=== PATIENT | female | born 1990 | race Caucasian/White ===

== ENCOUNTER 2018-02-20 06:47 | Emergency (ER) | payer BC, OTHER, SELFPAY ==
[2018-02-20] MEDS ORDERED: Acetaminophen 500 MG TAB ONE (07:17)
[2018-02-20] MEDS ORDERED: Azithromycin 250 MG TAB ONE (07:54)
== END 2018-02-20 08:00 | disposition home or self-care (01) ==
LOC: BURERS 06:47
DX: J03.90 Acute tonsillitis, unspecified (principal); F17.210 Nicotine dependence, cigarettes, uncomplicated
CPT/HCPCS: 87081; 87430; 87804; 99283

== ENCOUNTER 2018-07-18 16:20 | Emergency (ER) | payer BC, MEDICAID ==
[2018-07-18] MEDS ORDERED: AMOXicillin 250 MG CAP ONE (16:43)
== END 2018-07-18 16:52 | disposition home or self-care (01) ==
LOC: BURERS 16:20
DX: O99.511 Diseases of the respiratory system complicating pregnancy, first trimester (principal); J06.9 Acute upper respiratory infection, unspecified; O99.89 Other specified diseases and conditions complicating pregnancy, childbirth and the puerperium; H66.92 Otitis media, unspecified, left ear; Z87.891 Personal history of nicotine dependence; Z3A.00 Weeks of gestation of pregnancy not specified
CPT/HCPCS: 99283

== ENCOUNTER 2019-04-04 22:45 | Emergency (ER) | payer OTHER ==
[2019-04-04] MEDS ORDERED: Dexamethasone 4 MG TAB ONE (23:04)
[2019-04-04] MEDS ORDERED: hydrOXYzine 25 MG TAB ONE (23:04)
== END 2019-04-04 23:07 | disposition home or self-care (01) ==
LOC: BURERS 22:45
DX: T63.481A Toxic effect of venom of other arthropod, accidental (unintentional), initial encounter (principal); F17.210 Nicotine dependence, cigarettes, uncomplicated
CPT/HCPCS: 99282; J8540

== ENCOUNTER 2019-05-05 16:44 | Emergency (ER) | payer MEDICAID, OTHER, SELFPAY | END 2019-05-05 17:09 | disposition home or self-care (01) | LOC: BURERS 16:44 | DX: L25.9 Unspecified contact dermatitis, unspecified cause (principal); F17.210 Nicotine dependence, cigarettes, uncomplicated | CPT/HCPCS: 99282 ==

== ENCOUNTER 2020-09-29 20:44 | Emergency (ER) | payer SELFPAY ==
[2020-09-29] MEDS ORDERED: Lidocaine 2% w/Epinephrine 1:200K 20 ML VIAL ONE (21:03)
[2020-09-29] MEDS ORDERED: Lidocaine 1% PF 5 ML VIAL ONE (21:05)
[2020-09-29] MEDS ORDERED: TETANUS, DIPHTHERIA TOX,ADULT (TDVAX) 0.5 ML VIAL IM ONE (21:50)
[2020-09-29] MEDS ORDERED: Bacitracin 1 PK ONE (21:54)
== END 2020-09-29 21:58 | disposition home or self-care (01) ==
LOC: BURERS 20:44
DX: S61.012A Laceration without foreign body of left thumb without damage to nail, initial encounter (principal); F17.210 Nicotine dependence, cigarettes, uncomplicated; W26.0XXA Contact with knife, initial encounter
CPT/HCPCS: 12001; 90471; 90714

== ENCOUNTER 2021-03-23 10:37 | Emergency (ER) | payer SELFPAY ==
[2021-03-24 00:35] LABS: SARS-CoV-2 PCR by NAA DETECTED (NotDetected)
== END 2021-03-23 11:50 | disposition home or self-care (01) ==
LOC: BURERS 10:37
DX: U07.1 COVID-19 (principal); F17.210 Nicotine dependence, cigarettes, uncomplicated
CPT/HCPCS: 87081; 87430; 99284; U0003; U0005

== ENCOUNTER 2021-08-30 17:42 | Emergency (ER) | payer SELFPAY ==
[2021-08-30 18:30] LABS: Bilirubin Negative (Negative); Blood, Urine Large (Negative); Clarity Clear (Clear); Glucose, Urine (Dipstick) Negative (Negative); Ketone, Urine Negative (Negative); Leukocyte Small (Negative); Nitrite Negative (Negative); Protein, Urine (Dipstick) 30 mg/dL (Neg-Trace); Urobilinogen 0.2 mg/dL (Less than 2)
[2021-08-30 18:31] LABS: Specific Gravity, Urine 1.006 (1.002-1.036)
[2021-08-30] MEDS ORDERED: Famotidine In NaCl 20 mg/50 ml Premix Bag ONE (18:34)
[2021-08-30] MEDS ORDERED: Ondansetron PF 4 MG/2 ML Vial ONE (18:34)
[2021-08-30] MEDS ORDERED: Glycopyrrolate 0.4 MG/ 2 ML VIAL ONE (18:34)
[2021-08-30 18:48] LABS: #Basophils 0.1 thou/uL (0.0-0.2); #Eosinphils 0.1 thou/uL (0.0-0.7); #Lymphocytes 2.1 thou/uL (1.20-3.40); #Monocytes 0.6 thou/uL (0.11-0.59); #Neutrophils 4.9 thou/uL (1.40-6.50); %Basophils 0.8 % (0.0-1.0); %Eosinophils 1.1 % (0.0-10.0); %Lymphocytes 27.3 % (21.0-51.0); %Monocytes 7.4 % (0.0-10.0); %Neutrophils 63.4 % (42.0-75.0); Mean Corpuscular HGB CONC 34.6 g/dL (32.0-36.0); Mean Corpuscular Hemoglobin 32.5 pg (27.0-31.0); Mean Platelet Volume 8.4 fL (7.4-10.4); Platelet Count 241 thou/uL (130-400); RBC Distribution Width 12.8 % (11.5-14.5); Red Blood Cell (RBC) Count 4.62 mill/uL (4.20-5.40); White Blood Cell (WBC) Count 7.8 thou/uL (4.8-10.8)
[2021-08-30 18:54] LABS: Bacteria/HPF Rare-Few HPF (None Seen); RBC/HPF 21-50 HPF (0-3); Squamous Epithelial 0-3 HPF (0-3); Transitional Epithelial 0-3 HPF (None Seen); WBC/HPF 0-3 HPF (0-3)
[2021-08-30 19:03] LABS: ALT (SGPT) 30 U/L (8-55); AST (SGOT) 23 U/L (5-34); Albumin 4.5 g/dL (3.5-5.0); Alkaline Phosphatase 71 U/L (40-110); Anion Gap 13 mmol/L (10-20); BUN (Urea Nitrogen) 9 mg/dL (7.0-18.7); Bilirubin, Total 0.8 mg/dL (0.2-1.2); Calc. Creatinine Clearance 0 mL/min (70-130); Calcium 8.9 mg/dL (7.8-10.44); Carbon Dioxide 24 mmol/L (22-29); Chloride 108 mmol/L (98-107); Glucose 87 mg/dL (70-105); Lipase 18 U/L (8-78); Potassium 3.8 mmol/L (3.5-5.1); Protein, Total 7.5 g/dL (6.0-8.3); Sodium 141 mmol/L (136-145)
[2021-08-30] MEDS ORDERED: Ciprofloxacin 500 MG TAB ONE (19:45)
== END 2021-08-30 19:49 | disposition home or self-care (01) ==
LOC: BURERS 17:42
DX: R19.7 Diarrhea, unspecified (principal); F17.210 Nicotine dependence, cigarettes, uncomplicated
CPT/HCPCS: 80053; 81003; 81015; 83690; 85025; 96365; 96375; J2405

== ENCOUNTER 2021-09-25 13:28 | Emergency (ER) | payer SELFPAY ==
[2021-09-25] MEDS ORDERED: Acetaminophen 500 MG TAB ONE (14:14)
== END 2021-09-25 14:17 | disposition home or self-care (01) ==
LOC: BURERS 13:28
DX: H60.502 Unspecified acute noninfective otitis externa, left ear (principal); F17.210 Nicotine dependence, cigarettes, uncomplicated; E66.9 Obesity, unspecified; Z68.45 Body mass index [BMI] 70 or greater, adult
CPT/HCPCS: 99282

== ENCOUNTER 2022-03-28 11:27 | Emergency (ER) | payer SELFPAY | END 2022-03-28 12:36 | disposition home or self-care (01) | LOC: BURERS 11:27 | DX: J10.1 Influenza due to other identified influenza virus with other respiratory manifestations (principal) | CPT/HCPCS: 87804; 99283 ==

== ENCOUNTER 2023-01-03 13:21 | Emergency (ER) | payer SELFPAY | END 2023-01-03 13:47 | disposition home or self-care (01) | LOC: BURERS 13:21 | DX: J06.9 Acute upper respiratory infection, unspecified (principal); F17.210 Nicotine dependence, cigarettes, uncomplicated | CPT/HCPCS: 99283 ==

== ENCOUNTER 2025-05-07 10:35 | Emergency (ER) | payer BC, SELFPAY | END 2025-05-07 12:00 | disposition home or self-care (01) | LOC: BURERS 10:35 | DX: B34.9 Viral infection, unspecified (principal); F17.290 Nicotine dependence, other tobacco product, uncomplicated | CPT/HCPCS: 87081; 87428; 87430; 99283 ==